=== PATIENT | male | born 1985 | race Caucasian/White ===

== ENCOUNTER 2022-11-23 16:31 | Emergency (ER) | payer SELFPAY ==
[~2022-11-23] VITALS: Ht 175.3 cm; Wt 76.0 kg
[2022-11-23 16:45] VITALS: BP 111/80
[2022-11-23] MEDS ORDERED: IBUPROFEN 600MG TABLET PO ONE (16:45)
[2022-11-23] MEDS ORDERED: SULF1TAB48 MT (17:57)
== END 2022-11-23 18:33 | disposition home or self-care (01) ==
LOC: ER 16:31
DX: L03.116 Cellulitis of left lower limb (principal); R26.2 Difficulty in walking, not elsewhere classified
CPT/HCPCS: 73630; 99283